=== PATIENT | male | born 2000 | race Caucasian/White ===

== ENCOUNTER 2023-01-25 20:03 | Emergency (ER) | payer OTHER ==
[~2023-01-25] VITALS: Ht 172.7 cm; Wt 75.0 kg
[2023-01-25 20:03] VITALS: BP 155/93
[2023-01-25] MEDS ORDERED: AMOX875T2 PO (21:02)
== END 2023-01-25 21:14 | disposition home or self-care (01) ==
LOC: M ED 20:03
DX: S00.512A Abrasion of oral cavity, initial encounter (principal); Z79.2 Long term (current) use of antibiotics